=== PATIENT | male | born 1985 ===

== ENCOUNTER 2022-02-05 00:10 | Emergency (ER) | payer BC ==
[2022-02-05 02:16] LABS: HEMOGLOBIN 14.5 gm/dl (14.0-17.5); RED BLOOD COUNT 5.5 M/UL (4.20-5.50); WHITE BLOOD COUNT 9.7 K/UL (4.5-11.0)
[2022-02-05 02:39] LABS: BUN/CREATININE RATIO 17 (0-10)
[2022-02-05] MEDS ORDERED: K-TAB ER10 MEQ PO (04:51)
== END 2022-02-05 05:10 | disposition home or self-care (01) ==
LOC: ER1 00:10
PROVIDERS: Physician Assistant
DX: R07.89 Other chest pain (principal); R00.2 Palpitations; E87.6 Hypokalemia; Z20.822 Contact with and (suspected) exposure to COVID-19
CPT/HCPCS: 0240U; 71045; 80053; 80307; 81001; 82550; 82553; 83735; 84439; 84443; 84484; 85025; 85379; 85610; 85730; 87086; 93005; 99285